=== PATIENT | male | born 2000 | race Hispanic/Latino ===

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

== ENCOUNTER 2020-01-06 06:51 | Emergency (ER) | payer BC ==
--- NOTE | 2020-01-06 08:27 | ER ---
Nurse's Notes [facility] Name: Charles Hernandez Age: 19 yrs Sex: Male : 2000 Arrival Date: 01/06/2020 Time: 06:53 Bed 5 Private MD: Diagnosis: Cough;Bronchitis, not specified as acute or chronic Presentation: 01/05 07:03 Chief complaint: Patient states: he woke up this AM and blew his nose which was bloody bb then he has been coughing with blood in his sputum this morning and yesterday he had a momentary slight pain in his left rib cage. Coronavirus screen: At this time, the client does not indicate any symptoms associated with coronavirus-19. Ebola Screen: No symptoms or risks identified at this time. Onset: The symptoms/episode began/occurred acutely. Anaphylaxis evaluation, no signs or symptoms of anaphylaxis were noted. Initial Sepsis Screen: Does the patient meet any 2 criteria? No. Patient's initial sepsis screen is negative. Does the patient have a suspected source of infection? No. Patient's initial sepsis screen is negative. Risk Assessment: Do you want to hurt yourself or someone else? Patient reports no desire to harm self or others. Onset of symptoms was January 06, 2020. 07:03 Method Of Arrival: Ambulatory bb 07:03 Acuity: OPAL 3 bb Historical: - Allergies: 07:07 Bactrim; bb - Home Meds: 07:07 None [Active]; bb - PMHx: 07:07 None; bb - PSHx: 07:07 None; bb - Immunization history:: Adult Immunizations up to date. - Social history:: Smoking status: Patient denies any tobacco usage or history of. - Family history:: not pertinent. Screenin:15 Abuse screen: Denies threats or abuse. Denies injuries from another. Nutritional jl7 screening: No deficits noted. Tuberculosis screening: No symptoms or risk factors identified. Fall Risk None identified. Assessment: 07:15 General: Appears in no apparent distress. uncomfortable, Behavior is calm, cooperative, jl7 appropriate for age. Pain: Complains of pain in TRACY Pain currently is 2 out of 10 on a pain scale. Neuro: Level of Consciousness is awake, alert, obeys commands, Oriented to person, place, time, situation. Cardiovascular: Patient's skin is warm and dry. Respiratory: Airway is patent Respiratory effort is even, unlabored, Respiratory pattern is regular, symmetrical. Derm: Skin is pink, warm \T\ dry. 07:50 Reassessment: Patient appears in no apparent distress at this time. No changes from tw2 previously documented assessment. Patient and/or family updated on plan of care and expected duration. Pain level reassessed. Patient is alert, oriented x 3, equal unlabored respirations, skin warm/dry/pink. 08:47 Reassessment: Patient appears in no apparent distress at this time. No changes from jl7 previously documented assessment. Patient and/or family updated on plan of care and expected duration. Pain level reassessed. Patient is alert, oriented x 3, equal unlabored respirations, skin warm/dry/pink. Awaiting x-ray. 08:49 Reassessment: Pt will be discharged once x-rays are taken and resulted. jl7 08:57 Reassessment: Pt transported to x-ray via wheelchair. jl7 09:13 Reassessment: Dr. Parkinson at bedside with results at this time. tw2 09:15 Reassessment: Patient appears in no apparent distress at this time. No changes from tw2 previously documented assessment. Patient and/or family updated on plan of care and expected duration. Pain level reassessed. Patient is alert, oriented x 3, equal unlabored respirations, skin warm/dry/pink. Vital Signs: 07:03 BP 140 / 91; Pulse 87; Resp 16 S; Temp 98.2(O); Pulse Ox 100% ; Weight 65.77 kg (R); bb Height 5 ft. 7 in. (170.18 cm) (R); Pain 2/10; 07:49 BP 140 / 91; Pulse 81; Resp 17; Pulse Ox 98% on R/A; tw2 08:48 BP 122 / 84; Pulse 79; Resp 14; Pulse Ox 99% ; jl7 07:03 Body Mass Index 22.71 (65.77 kg, 170.18 cm) ED Course: 06:53 Patient arrived in ED. bp1 07:06 Yamilka Stinson, RN is Primary Nurse. tw2 07:07 Triage completed. bb 07:07 Arm band placed on Patient placed in an exam room, on a stretcher, on pulse oximetry. bb Family accompanied patient. 07:10 [place], Torsten, MD is Attending Physician. tw4 07:15 Patient has correct armband on for positive identification. Bed in low position. Call jl7 light in reach. Side rails up X 1. 07:24 Flu and/or RSV swab sent to lab. Strep swab sent to lab. COVID-19 swab sent to lab. jl7 08:19 Jorge Parkinson MD is Attending Physician. [facility] 08:47 Awaiting for x-ray. jl7 09:01 Chest Pa And Lat (2 Views) XRAY In Process Unspecified. EDMS 09:15 No provider procedures requiring assistance completed. Patient did not have IV access tw2 during this emergency room visit. Administered Medications: 08:43 Drug: Zithromax 500 mg Route: PO; jl7 09:15 Follow up: Response: No adverse reaction tw2 Outcome: 08:27 Discharge ordered by MD. [facility] 09:15 Discharged to home ambulatory, with family. tw2 09:15 Condition: stable 09:15 Discharge instructions given to patient, family, Instructed on discharge instructions, follow up and referral plans. medication usage, Demonstrated understanding of instructions, follow-up care, medications, Prescriptions given X 1. 09:16 Patient left the ED. tw2 Addendum: 01/08/2020 16:49 Addendum: COVID-19 Result: Negative result given to RN to notify pt. Notified pt of h b negative COVID 19 swab results. Pt advised that even with a negative test result they should remain in isolation until symptom free for 3 days without medication. Pt also advised to return to the ED for worsening symptoms. Signatures: Dispatcher [employer] EDNY Jorge Parkinson MD MD cha Ballard, Brenda, RN RN Marietta Aguilera RN RN Yamilka Stinson RN RN tw2 Luisa Freire RN RN jl7 Wadley, Terrence, MD MD tw4 Ny Delaney [facility]
--- NOTE | 2020-01-06 08:27 | EDPHYS ---
Physician Documentation [facility] Name: Charles Hernandez Age: 19 yrs Sex: Male : 2000 Arrival Date: 01/06/2020 Time: 06:53 Bed 5 Private MD: ED Physician Jorge Parkinson HPI: 01/05 08:24 This 19 yrs old Male presents to ER via Ambulatory with complaints of Cough, sun Sneezing, Headache. 08:24 The patient or guardian reports cough, that is constant. Onset: The symptoms/episode sun began/occurred 1 day(s) ago. Severity of symptoms: At their worst the symptoms were mild, in the emergency department the symptoms are unchanged. Modifying factors: The symptoms are alleviated by nothing, the symptoms are aggravated by nothing. Associated signs and symptoms: The patient has no apparent associated signs or symptoms. The patient has experienced a previous episode. Historical: - Allergies: 07:07 Bactrim; bb - Home Meds: 07:07 None [Active]; bb - PMHx: 07:07 None; bb - PSHx: 07:07 None; bb - Immunization history:: Adult Immunizations up to date. - Social history:: Smoking status: Patient denies any tobacco usage or history of. - Family history:: not pertinent. ROS: 08:24 Constitutional: Negative for fever, chills, and weight loss, Eyes: Negative for injury, sun pain, redness, and discharge, ENT: Negative for injury, pain, and discharge, Neck: Negative for injury, pain, and swelling, Cardiovascular: Negative for chest pain, palpitations, and edema, Abdomen/GI: Negative for abdominal pain, nausea, vomiting, diarrhea, and constipation, Back: Negative for injury and pain, : Negative for injury, bleeding, discharge, and swelling, MS/Extremity: Negative for injury and deformity, Skin: Negative for injury, rash, and discoloration, Neuro: Negative for headache, weakness, numbness, tingling, and seizure, Psych: Negative for depression, anxiety, suicide ideation, homicidal ideation, and hallucinations, Allergy/Immunology: Negative for hives, rash, and allergies, Endocrine: Negative for neck swelling, polydipsia, polyuria, polyphagia, and marked weight changes, Hematologic/Lymphatic: Negative for swollen nodes, abnormal bleeding, and unusual bruising. 08:24 Respiratory: Positive for cough, with no reported sputum. Exam: 08:24 Constitutional: This is a well developed, well nourished patient who is awake, alert, sun and in no acute distress. Head/Face: Normocephalic, atraumatic. Eyes: Pupils equal round and reactive to light, extra-ocular motions intact. Lids and lashes normal. Conjunctiva and sclera are non-icteric and not injected. Cornea within normal limits. Periorbital areas with no swelling, redness, or edema. ENT: Nares patent. No nasal discharge, no septal abnormalities noted. Tympanic membranes are normal and external auditory canals are clear. Oropharynx with no redness, swelling, or masses, exudates, or evidence of obstruction, uvula midline. Mucous membranes moist. Neck: Trachea midline, no thyromegaly or masses palpated, and no cervical lymphadenopathy. Supple, full range of motion without nuchal rigidity, or vertebral point tenderness. No Meningismus. Chest/axilla: Normal chest wall appearance and motion. Nontender with no deformity. No lesions are appreciated. Cardiovascular: Regular rate and rhythm with a normal S1 and S2. No gallops, murmurs, or rubs. Normal PMI, no JVD. No pulse deficits. Respiratory: Lungs have equal breath sounds bilaterally, clear to auscultation and percussion. No rales, rhonchi or wheezes noted. No increased work of breathing, no retractions or nasal flaring. Abdomen/GI: Soft, non-tender, with normal bowel sounds. No distension or tympany. No guarding or rebound. No evidence of tenderness throughout. Back: No spinal tenderness. No costovertebral tenderness. Full range of motion. Skin: Warm, dry with normal turgor. Normal color with no rashes, no lesions, and no evidence of cellulitis. MS/ Extremity: Pulses equal, no cyanosis. Neurovascular intact. Full, normal range of motion. Neuro: Awake and alert, GCS 15, oriented to person, place, time, and situation. Cranial nerves II-XII grossly intact. Motor strength 5/5 in all extremities. Sensory grossly intact. Cerebellar exam normal. Normal gait. Psych: Awake, alert, with orientation to person, place and time. Behavior, mood, and affect are within normal limits. 08:24 Musculoskeletal/extremity: Exam is negative for Extremities: all appear grossly normal, with no appreciated pain with palpation, DVT Exam: No signs of deep vein thrombosis. no pain, no swelling, no tenderness, negative Homans' sign noted on exam, no appreciated bluish discoloration, no erythema, no increased warmth. Vital Signs: 07:03 BP 140 / 91; Pulse 87; Resp 16 S; Temp 98.2(O); Pulse Ox 100% ; Weight 65.77 kg (R); bb Height 5 ft. 7 in. (170.18 cm) (R); Pain 2/10; 07:49 BP 140 / 91; Pulse 81; Resp 17; Pulse Ox 98% on R/A; tw2 08:48 BP 122 / 84; Pulse 79; Resp 14; Pulse Ox 99% ; jl7 07:03 Body Mass Index 22.71 (65.77 kg, 170.18 cm) bb MDM: 08:[address] [facility] 08:25 Differential Diagnosis: Bronchitis Influenza Upper Respiratory Infection Pneumonia. [facility] Data reviewed: vital signs, nurses notes, lab test result(s), Flu: negative radiologic studies. Data interpreted: monitoring tech: rate is 81 beats/min, rhythm is regular, Pulse oximetry: on room air is 98 %. Test interpretation: by ED physician or midlevel provider: plain radiologic studies. Counseling: I had a detailed discussion with the patient and/or guardian regarding: the historical points, exam findings, and any diagnostic results supporting the discharge/admit diagnosis, lab results, radiology results, the need for outpatient follow up, for definitive care, an vp marketing. 01/05 07:10 Order name: COVID-19 [facility] 01/05 07:10 Order name: Flu; Complete Time: 09:03 tw4 01/05 07:10 Order name: Strep; Complete Time: 09:03 tw4 01/05 08:09 Order name: Throat Culture EDRI 01/05 08:24 Order name: Chest Pa And Lat (2 Views) XRAY sun 01/05 07:10 Order name: Document PUI#; Complete Time: 07:28 tw4 01/05 07:10 Order name: Droplet/Contact Precautions; Complete Time: 07:21 tw4 01/05 07:10 Order name: Labs collected and sent; Complete Time: 07:28 tw4 01/05 07:10 Order name: O2 Per Protocol; Complete Time: 07:20 Administered Medications: 08:43 Drug: Zithromax 500 mg Route: PO; jl7 09:15 Follow up: Response: No adverse reaction tw2 Disposition: 01/06/20 08:27 Discharged to Home. Impression: Cough, Bronchitis, not specified as acute or chronic. - Condition is Stable. - Discharge Instructions: Acute Bronchitis, Adult, Upper Respiratory Infection, Adult, Cool Mist Vaporizer. - Prescriptions for Zithromax Z- Alvin 250 mg Oral Tablet - take 1 tablet by ORAL route as directed for 5 days Day 1 - take two (2) tablets one time. Day 2, 3, 4 , 5 take one (1) tablet once daily.; 6 tablet. - Medication Reconciliation Form, Thank You Letter, Antibiotic Education, Prescription Opioid Use, Work release form form. - Follow up: Private Physician; When: 2 - 3 days; Reason: Recheck today's complaints, Continuance of care, Re-evaluation by your physician. - Problem is new. - Symptoms have improved. Signatures: Dispatcher [employer] EDJorge Chow MD MD cha Ballard, Brenda, RN RN bb Yamilka Stinson RN RN tw2 Luisa Freire RN RN jl7 Torsten Mayes MD MD tw4 Corrections: (The following items were deleted from the chart) 07:28 07:10 Notify [facility] [phone]/ ordered. tw4 09:16 08:27 01/06/2020 08:27 Discharged to Home. Impression: Cough; Bronchitis, not specified tw2 as acute or chronic. Condition is Stable. Forms are Work release form, Medication Reconciliation Form, Thank You Letter, Antibiotic Education, Prescription Opioid Use. Follow up: Private Physician; When: 2 - 3 days; Reason: Recheck today's complaints, Continuance of care, Re-evaluation by your physician. Problem is new. Symptoms have improved. sun
[2020-01-06] MEDS ORDERED: AZITHROMYCIN 250 MG TAB ONE (08:56)
--- NOTE | 2020-01-06 09:08 | RAD REPORT ---
EXAM DESCRIPTION: Erika Kamara And Fina (2 Views)01/06/2020 9:01 am CLINICAL HISTORY: Cough COMPARISON: None FINDINGS: Lungs are mildly to moderately hyperaerated. The lungs appear clear of acute infiltrate. The heart is normal size
[2020-01-06 09:32] VITALS: TEMP 98.2
[2020-01-06 09:35] VITALS: BP 122/84; O2SAT 99
== END 2020-01-06 09:16 | disposition home or self-care (01) ==
LOC: ER 06:51
DX: J40 Bronchitis, not specified as acute or chronic (principal); Z20.828 Contact with and (suspected) exposure to other viral communicable diseases; Z88.1 Allergy status to other antibiotic agents
CPT/HCPCS: 87070; 87081; 87804 ×2; 71046; 99284; U0002

== ENCOUNTER 2021-08-29 20:57 | Emergency (ER) | payer BC, OTHER ==
--- OUTSIDE RECORDS SUMMARY | 2021-08-29 21:00 | XMS REPORT | Continuity of Care Document ---
:2000 Author Organization [facility] Address [address] [place] [address] Dr. Graf [address] [place] [id number] Care Team Providers Name Role Phone AMBREEN_SHEILA Attending Clinician Unavailable AMBREEN_FARHANA Admitting Clinician Unavailable Payers Payer Name Policy Type Policy Number Effective Date Expiration Date S ource Problems This patient has no known problems. Allergies, Adverse Reactions, Alerts This patient has no known allergies or adverse reactions. Medications This patient has no known medications. Procedures This patient has no known procedures. Encounters Start End Encounter Admission Attending Care Care Encounter Source Date/Time Date/Time Type Type Clinicians Facility Department ID 2021-07-23 2021-07-23 Outpatient AMBREEN_FAR [facility] [place] 10:57:00 10:57:00 [facility] [id number] [facility] 2020-06-17 2020-06-17 Outpatient AMBREEN_FAR [facility] [address] [place] 07:47:00 07:47:00 [facility] [id number] [facility] 2020-06-17 2020-06-17 Outpatient AMBREEN_FAR [facility] [address] [place] 07:47:00 07:47:00 [facility] [id number] [facility] Results This patient has no known results.
--- NOTE | 2021-08-29 21:49 | RAD REPORT ---
EXAM DESCRIPTION: CT - Spine Lumbar Wo Con - 08/29/2021 9:41 pm CLINICAL HISTORY: Radiculopathy. Low back pain, trauma COMPARISON: No comparisons TECHNIQUE: Axial noncontrast CT imaging of the lumbar spine was performed with coronal and sagittal re-formatted images. All CT scans are performed using dose optimization technique as appropriate and may include automated exposure control or mA/KV adjustment according to patient size. FINDINGS: No acute lumbar spine fracture seen. No aggressive marrow pattern or malalignment. Paraspinal tissues are normal in thickness. No paraspinal abscess or hematoma seen. Probable moderate central disc herniation noted at L5-S1. IMPRESSION: No acute lumbar spine abnormality is detected. Moderate central disc herniation suspected at L5-S1. Followup MRI lumbar spine on a nonemergent basis is recommended.
[2021-08-29] MEDS ORDERED: KETOROLAC 30 MG/ML INJ ONE (21:54)
[2021-08-29] MEDS ORDERED: dexAMETHasone 10 MG/ML VIAL ONE (21:54)
[2021-08-29] MEDS ORDERED: HYDROMORPHONE HCL 1 MG/ML INJ ONE (23:15)
[2021-08-29] MEDS ORDERED: ONDANSETRON 4 MG/2 ML VIAL ONE (23:16)
--- NOTE | 2021-08-29 23:59 | EDPHYS ---
Physician Documentation [facility] Name: Charles Hernandez Age: 21 yrs Sex: Male : 2000 Arrival Date: 08/29/2021 Time: 21:01 Bed 12 Private MD: Tyree Hernandez ED Physician Kevin Ponce HPI: 08/29 21:20 This 21 yrs old Male presents to ER via EMS with complaints of Back Pain. jmm 21:20 The patient presents with pain that is acute. The symptoms are located in the low back. jmm This is a 21-year-old male with no chronic medical conditions the presents emerged part with complaints of lower back pain which occurred after lifting up his dog. Patient states he had had previous pain in the back before he attempted to lift the dog. Patient states now he has pain that radiates into both legs when he stands up straight. Denies any bowel or bladder issues. Denies numbness. Denies fever.. Historical: - Allergies: 21:16 Bactrim; as6 - Home Meds: 21:16 None [Active]; as6 - PMHx: 21:16 None; as6 - PSHx: 21:16 None; as6 - Immunization history:: Client reports having NOT received the Covid vaccine. - Social history:: Smoking status: Patient denies any tobacco usage or history of. ROS: 21:20 Constitutional: Negative for fever, chills, and weight loss, Cardiovascular: Negative jmm for chest pain, palpitations, and edema, Respiratory: Negative for shortness of breath, cough, wheezing, and pleuritic chest pain. 21:20 Back: Positive for pain at rest, pain with movement. 21:20 All other systems are negative. Exam: 21:20 Constitutional: This is a well developed, well nourished patient who is awake, alert, jmm and in no acute distress. Head/Face: atraumatic. Eyes: EOMI, no conjunctival erythema appreciated ENT: Moist Mucus Membranes Neck: Trachea midline, Supple Chest/axilla: Normal chest wall appearance and motion. Cardiovascular: Regular rate and rhythm. No edema appreciated Respiratory: Normal respirations, no respiratory distress appreciated Abdomen/GI: Non distended, soft Skin: General appearance color normal 21:20 Back: pain, that is moderate, of the lumbar area. 21:20 Musculoskeletal/extremity: ROM: intact in all extremities. 21:20 Skin: Appearance: Color: normal in color. 21:20 Neuro: Orientation: is normal, Mentation: is normal, Memory: is normal. 21:20 Psych: Behavior/mood is pleasant, cooperative. Vital Signs: 21:13 BP 111 / 68; Pulse 68 MON; Resp 18 S; Temp 98.2(TE); Pulse Ox 100% on R/A; Weight 72.57 as6 kg (R); Height 5 ft. 5 in. (165.10 cm) (R); Pain 5/10; 23:23 BP 116 / 61; Pulse 84; Resp 16 S; Pulse Ox 100% on R/A; Pain /10; bb 08/30 00:08 BP 112 / 63; Pulse 76; Resp 18 S; Pulse Ox 98% on R/A; as6 08/29 21:13 Body Mass Index 26.63 (72.57 kg, 165.10 cm) as6 MDM: 08/29 21:20 Patient medically screened. [facility] 23:53 Data reviewed: vital signs, nurses notes. Counseling: I had a detailed discussion with aldo the patient and/or guardian regarding: the historical points, exam findings, and any diagnostic results supporting the discharge/admit diagnosis, radiology results, the need for outpatient follow up, to return to the emergency department if symptoms worsen or persist or if there are any questions or concerns that arise at home. 08/29 21:21 Order name: CT Lumbar Spine Wo Con; Complete Time: 21:53 [facility] 08/29 21:21 Order name: Saline Lock; Complete Time: 21:59 [facility] Administered Medications: 21:59 Drug: Ketorolac 30 mg Route: IVP; Site: right antecubital; bb 23:21 Follow up: Response: No adverse reaction bb 21:59 Drug: Decadron - Dexamethasone 10 mg Route: IVP; Site: right antecubital; bb 23:21 Follow up: Response: No adverse reaction bb 21:59 CANCELLED (Duplicate Order): fentaNYL (PF) 50 mcg IVP once [facility] 23:18 Drug: Zofran (Ondansetron) 4 mg Route: IVP; Site: right antecubital; bb 08/30 00:07 Follow up: Response: No adverse reaction as6 08/29 23:21 Drug: Dilaudid (HYDROmorphone) 0.5 mg Route: IVP; Site: right antecubital; lupe 08/30 00:07 Follow up: Response: No adverse reaction; RASS: Alert and Calm (0) as6 Disposition: 09:19 Co-signature as Attending Physician, Kevin Ponce DO I was immediately available on-site ms3 in the Emergency Department for consultation in the care of the patient. . Disposition Summary: 08/29/21 23:58 Discharge Ordered Location: Home [facility] Condition: Stable jmm Diagnosis - Sciatica jm Followup: m - With: Private Physician - When: 2 - 3 days - Reason: Recheck today's complaints, Continuance of care, Re-evaluation by your physician Discharge Instructions: - Discharge Summary Sheet [facility] - Sciatica jm - [facility] Forms: - Medication Reconciliation Form [facility] - Thank You Letter [facility] - Antibiotic Education [facility] - Prescription Opioid Use [facility] - Work release form Prescriptions: - Ultracet 37.5-325 mg Oral Tablet - take 1 tablet by ORAL route every 6 hours - for up to 5 days; do not exceed 8 jmm tablets per day.; 12 tablet; Refills: 0, Product Selection Permitted - Zanaflex 4 mg Oral Tablet - take 1 tablet by ORAL route every 8 hours As needed; 20 tablet; Refills: 0, [facility] Product Selection Permitted - Diclofenac Sodium 75 mg Oral Tablet Sustained Release - take 1 tablet by ORAL route 2 times per day; 30 tablet; Refills: 0, Product [facility] Selection Permitted Signatures: Dispatcher [employer] Micah Noel PA PA jmm Ballard, Brenda, RN RN Kevin Pérez DO DO ms3 Júnior Esposito RN RN as6 Corrections: (The following items were deleted from the chart) 08/29 21:59 21:58 fentaNYL (PF) 50 mcg IVP once ordered. sandra aldo
--- NOTE | 2021-08-29 23:59 | ER ---
Nurse's Notes [facility] Name: Charles Hernandez Age: 21 yrs Sex: Male : 2000 Arrival Date: 08/29/2021 Time: 21:01 Bed 12 Private MD: Tyree Hernandez Diagnosis: Sciatica Presentation: 08/29 21:13 Chief complaint: Patient states: "I was giving my dog a bath and then all of a sudden as6 my back started really hurting". Coronavirus screen: At this time, the client does not indicate any symptoms associated with coronavirus-19. Ebola Screen: No symptoms or risks identified at this time. Initial Sepsis Screen: Does the patient meet any 2 criteria? No. Patient's initial sepsis screen is negative. Does the patient have a suspected source of infection? No. Patient's initial sepsis screen is negative. Risk Assessment: Do you want to hurt yourself or someone else? Patient reports no desire to harm self or others. Onset of symptoms was August 29, 2021. 21:13 Method Of Arrival: EMS: [facility] as6 21:13 Acuity: OPAL 3 as6 Historical: - Allergies: 21:16 Bactrim; as6 - Home Meds: 21:16 None [Active]; as6 - PMHx: 21:16 None; as6 - PSHx: 21:16 None; as6 - Immunization history:: Client reports having NOT received the Covid vaccine. - Social history:: Smoking status: Patient denies any tobacco usage or history of. Screenin:32 Abuse screen: Denies threats or abuse. Denies injuries from another. Nutritional as6 screening: No deficits noted. Tuberculosis screening: No symptoms or risk factors identified. Fall Risk None identified. Assessment: 21:30 General: Appears uncomfortable, Behavior is calm, cooperative. Pain: Complains of pain as6 in back. Neuro: Baez Agitation-Sedation Scale (RASS): 0 - Alert and Calm Level of Consciousness is awake, alert, obeys commands, Oriented to person, place, time, situation. Cardiovascular: JVD is absent Patient's skin is warm and dry. Respiratory: Respiratory effort is even, unlabored, Respiratory pattern is regular, symmetrical. Musculoskeletal: Reports pain in back. 23:18 Reassessment: Patient is alert, oriented x 3, equal unlabored respirations, skin bb warm/dry/pink. IV site intact, patent, no erythema or edema noted. Family at bedside. Vital Signs: 21:13 BP 111 / 68; Pulse 68 MON; Resp 18 S; Temp 98.2(TE); Pulse Ox 100% on R/A; Weight 72.57 as6 kg (R); Height 5 ft. 5 in. (165.10 cm) (R); Pain 5/10; 23:23 BP 116 / 61; Pulse 84; Resp 16 S; Pulse Ox 100% on R/A; Pain 1/10; bb 08/30 00:08 BP 112 / 63; Pulse 76; Resp 18 S; Pulse Ox 98% on R/A; as6 08/29 21:13 Body Mass Index 26.63 (72.57 kg, 165.10 cm) as6 ED Course: 08/29 21:01 Patient arrived in ED. am2 21:02 Tyree Hernandez MD is Private Physician. am2 21:07 Micah Silver PA is PHCP. [facility] 21:07 Kevin Ponce DO is Attending Physician. [facility] 21:16 Triage completed. as6 21:16 Júnior Esposito, RILEY is Primary Nurse. as6 21:16 Arm band placed on. as6 21:43 CT Lumbar Spine Wo Con In Process Unspecified. EDMS 21:59 Inserted saline lock: 20 gauge in right antecubital area, using aseptic technique. bb 22:00 Bed in low position. Call light in reach. Side rails up X2. Pulse ox on. NIBP on. as6 08/30 00:07 No provider procedures requiring assistance completed. IV discontinued, intact, as6 bleeding controlled, No redness/swelling at site. Pressure dressing applied. 00:17 PHCP role handed off by Micah Silver PA bb 00:17 Primary Nurse role handed off by Júnior Esposito, RILEY bb Administered Medications: 08/29 21:59 Drug: Ketorolac 30 mg Route: IVP; Site: right antecubital; bb 23:21 Follow up: Response: No adverse reaction bb 21:59 Drug: Decadron - Dexamethasone 10 mg Route: IVP; Site: right antecubital; bb 23:21 Follow up: Response: No adverse reaction bb 21:59 CANCELLED (Duplicate Order): fentaNYL (PF) 50 mcg IVP once aldo 23:18 Drug: Zofran (Ondansetron) 4 mg Route: IVP; Site: right antecubital; lupe 08/30 00:07 Follow up: Response: No adverse reaction as6 08/29 23:21 Drug: Dilaudid (HYDROmorphone) 0.5 mg Route: IVP; Site: right antecubital; lupe 08/30 00:07 Follow up: Response: No adverse reaction; RASS: Alert and Calm (0) as6 Medication: 00:08 VIS not applicable for this client. as6 Outcome: 08/29 23:58 Discharge ordered by . aldo 08/30 00:08 Discharged to home ambulatory, with significant other. as6 Condition: stable Discharge instructions given to patient, significant other, Instructed on discharge instructions, follow up and referral plans. medication usage, Demonstrated understanding of instructions, follow-up care, medications, Prescriptions given X 3. 00:09 Patient left the ED. as6 00:20 Patient left the ED. lupe Signatures: Dispatcher [employer] EDMS Micah Silver PA PA jmm Ballard, Brenda, RN RN Gayathri Simmons Ashby RN RN as6
[2021-08-30 00:16] VITALS: TEMP 98.2
[2021-08-30 00:19] VITALS: BP 112/63; O2SAT 98
== END 2021-08-30 00:20 | disposition home or self-care (01) ==
LOC: ER 20:57
DX: M54.30 Sciatica, unspecified side (principal)
CPT/HCPCS: 72131; 96375; 96374; 99284; J1100; J1170; J2405